=== PATIENT | female | born 1985 | race Caucasian/White ===

== ENCOUNTER 2020-03-24 07:53 | Emergency (ER) | payer OTHER ==
[~2020-03-24] VITALS: Ht 157.4 cm; Wt 43.1 kg
[~2020-03-24 07:53] MED LIST: BACTRIM DS 8001 TA1 PO; BACTROBAN CREAM15 GM PO; BACTROBAN OINT22 GM PO; BACTROBAN2% TP; BACTROBAN21 TP; BIAXIN500 MG PO; CATAFLAM50 MG PO; CIPRO500 MG PO; CIPROFLOXACIN500 MG PO; CLINDAMYCIN150 MG PO; DOXYCYCLINE MO100 MG PO; IRON325 M1 PO; KEFLEX500 MG PO; MACROBID100 M1 PO; MOTRIN 800 MG E4 TAB PO; MOTRIN800 MG PO; NKHM; PERCOCET 325 MG1 TA5 PO; POTASSIUM PO; PYRIDIUM200 MG PO; ROBAXIN750 MG PO; SEPTRA DS 800 M1 TAB PO; TRAMADOL HCL50 MG PO; TRIMOX500 MG PO; VICODIN 5/500 505 MG PO; ZOFRAN ODT4 MG SL; ZOFRAN ODT8 MG PO; ZOFRAN4 MG PO
[2020-03-24] MEDS ORDERED: KEFLEX500 M1 PO (08:23)
[2020-03-24] MEDS ORDERED: PREDNISONE50 MG PO (08:23)
== END 2020-03-24 08:27 | disposition home or self-care (01) ==
LOC: ED 07:53
DX: T63.441A Toxic effect of venom of bees, accidental (unintentional), initial encounter (principal); M79.89 Other specified soft tissue disorders; Y92.89 Other specified places as the place of occurrence of the external cause

== ENCOUNTER 2021-12-05 12:30 | Emergency (ER) | payer OTHER ==
[~2021-12-05] VITALS: Ht 157.4 cm
[~2021-12-05 12:30] MED LIST changes: +KEFLEX500 M1 PO; +PREDNISONE50 MG PO
== END 2021-12-05 13:31 | disposition home or self-care (01) ==
LOC: ED 12:30
DX: S63.502A Unspecified sprain of left wrist, initial encounter (principal); Z98.890 Other specified postprocedural states; Z90.89 Acquired absence of other organs; X50.0XXA Overexertion from strenuous movement or load, initial encounter; Y93.89 Activity, other specified; Y92.89 Other specified places as the place of occurrence of the external cause; Y99.8 Other external cause status

== ENCOUNTER 2022-04-13 10:34 | Emergency (ER) | payer OTHER ==
[~2022-04-13] VITALS: Ht 157.4 cm; Wt 49.9 kg
== END 2022-04-13 13:01 | disposition left against medical advice (07) ==
LOC: ED 10:34
DX: R06.02 Shortness of breath (principal); Z53.21 Procedure and treatment not carried out due to patient leaving prior to being seen by health care provider; F17.200 Nicotine dependence, unspecified, uncomplicated; Z90.89 Acquired absence of other organs; Z98.890 Other specified postprocedural states

== ENCOUNTER 2022-07-27 08:49 | Emergency (ER) | payer OTHER ==
[~2022-07-27] VITALS: Ht 157.4 cm; Wt 45.4 kg
[2022-07-27] MEDS ORDERED: CEPHALEXIN500 M1 PO (13:30)
== END 2022-07-27 13:49 | disposition home or self-care (01) ==
LOC: ED 08:49
DX: L03.011 Cellulitis of right finger (principal); Z90.89 Acquired absence of other organs; Z98.890 Other specified postprocedural states; F17.200 Nicotine dependence, unspecified, uncomplicated